=== PATIENT | female | born 2000 | race Caucasian/White ===

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

== ENCOUNTER 2019-06-16 10:47 | Emergency (ER) | payer BC ==
[2019-06-16 11:22] VITALS: BP 111/69
--- NOTE | 2019-06-16 12:19 | UC ---
Complaint Female HPI - HPI Summary HPI Summary: Onset of low abdominal pain with some dysuria but no frequency; this began yesterday and is worsening. Onset of fever last night, initially 100 degrees but was 101.7 this morning. appetite decreased, but no vomiting or diarrhea. Has had a sore throat this week, without cough, ear pain or headache. Sexually active; she is on oral contraceptives for protection, but did not use a condom with a new partner about 4 days ago. No increase in discharge since then. Pain is worsening [facility]. Last ate approximately 9 am - History Of Current Complaint Chief Complaint: UCAbdominalPain Stated Complaint: ABD PAIN,FEVER Time Seen by Provider: 06/16/19 12:03 Hx Obtained From: Patient Hx Last Menstrual Period: 06/02/19 ?: No Onset/Duration: Gradual Onset, Lasting Days - 3 Timing: Constant Severity Initially: Moderate Severity Currently: Severe Pain Intensity: 7 - Allergies/Home Medications Allergies/Adverse Reactions: Allergies Allergy/AdvReac Type Severity Reaction Status Date / Time amoxicillin Allergy Hives Verified 06/16/19 11:23 morphine Allergy Hives Verified 06/16/19 11:23 Home Medications: Home Medications Acetaminophen [Tylenol Extra Strength] 1 tab PO ONCE 06/16/19 [History Confirmed 06/16/19] Ibuprofen TAB* [Advil TAB*] 400 mg PO ONCE 06/16/19 [History Confirmed 06/16/19] PMH/Surg Hx/FS Hx/Imm Hx Previously Healthy: Yes - Surgical History Surgical History: Yes Surgery Procedure, Year, and Place: Ear Tubes, ~1999, [place] - Family History Known Family History: Positive: None Negative: Cardiac Disease, Hypertension, Diabetes - Social History Occupation: Student Lives: With Family Alcohol Use: Occasionally Substance Use Type: None Smoking Status (MU): Never Smoked Tobacco Have You Smoked in the Last Year: No - Immunization History Most Recent Influenza Vaccination: Fall 2015 Vaccination Up to Date: Yes Review of Systems All Other Systems Reviewed And Are Negative: Yes Constitutional: Positive: Fever, Chills, Fatigue Eyes: Positive: Negative ENT: Positive: Sore Throat Respiratory: Negative: Shortness Of Breath, Cough Cardiovascular: Negative: Palpitations, Chest Pain Gastrointestinal: Positive: Abdominal Pain. Negative: Diarrhea Genitourinary: Positive: Dysuria. Negative: Hematuria, Frequency, Urgency Motor: Positive: Negative Neurovascular: Positive: Negative Musculoskeletal: Positive: Negative Neurological: Positive: Headache Psychological: Positive: Negative Is Patient Immunocompromised?: No Physical Exam Triage Information Reviewed: Yes Appearance: Well-Appearing, Well-Nourished, Pain Distress - moderate to severe, crying with pain Vital Signs: Initial Vital Signs Temp 99 F 06/16/19 11:15 Pulse 103 06/16/19 11:15 Resp 16 06/16/19 11:15 BP 111/69 06/16/19 11:15 Pulse Ox 99 06/16/19 11:15 ENT: Positive: Tonsillar swelling, Tonsillar exudate - bilateral Dental Exam: Normal Neck: Positive: Supple, Nontender, No Lymphadenopathy Respiratory: Positive: Lungs clear, Normal breath sounds Cardiovascular: Positive: RRR, No Murmur Abdomen Description: Positive: Soft, Guarding - guarding with palpation of the lower quadrants, with rebound tenderness., Peritoneal Signs. Negative: CVA Tenderness (R), CVA Tenderness (L), Hepatomegaly, Pulsatile Mass, Splenomegaly Bowel Sounds: Positive: Hypoactive Pelvic Exam: Positive: External Exam Normal, Speculum Exam Normal, No Masses. Negative: Tender Adnexa, Tender Uterus Musculoskeletal Exam: Normal Neurological: Positive: Alert, Muscle Tone Normal Psychological Exam: Normal Skin Exam: Normal Diagnostics - Laboratory Lab Results: UA with trace esterace. Swabs obtained for GC Chlamydia. Strep negative Complaint Female Dx - Course Course Of Treatment: Transfer to ER for evaluation due to concern that this is appendicitis. - Differential Dx/Diagnosis Differential Diagnosis/HQI/PQRI: Appendicitis, Cervicitis, Pelvic Inflammatory Disease Provider Diagnosis: Abdominal pain, acute, right lower quadrant - Physician Notifications Discussed Patient Care With: Tomy Red Discharge - Sign-Out/Discharge Documenting (check all that apply): Patient Departure All imaging exams completed and their final reports reviewed: No Studies - Discharge Plan Condition: Stable Disposition: TRANS HIGHER LVL OF CARE FAC Patient Education Materials: Acute Abdominal Pain (ED) Referrals: Ruth Lima NP [Primary Care Provider] - Additional Instructions: Please proceed straight to the emergency room. Do not eat or drink until you have been assessed in the ER. - Billing Disposition and Condition Condition: STABLE Disposition: Trans Higher Lvl of Care Fac
[2019-06-17 13:05] LABS: Chlamydia trachomatis NAA Negative (Negative); Neisseria gonorrhoeae (GC) NAA Negative (Negative)
--- NOTE | 2019-06-18 07:11 | UC ---
- Progress Note Progress Note: urine final - no growth culture neg gc//ch no change ljj 06/18/19 Course/Dx - Diagnoses Provider Diagnoses: Abdominal pain, acute, right lower quadrant Discharge - Sign-Out/Discharge Documenting (check all that apply): Post-Discharge Follow Up All imaging exams completed and their final reports reviewed: No Studies - Discharge Plan Condition: Stable Disposition: TRANS HIGHER LVL OF CARE FAC Patient Education Materials: Acute Abdominal Pain (ED) Referrals: Ruth Lima QA [employer]INE[employer] [Primary Care Provider] - Additional Instructions: Please proceed straight to the emergency room. Do not eat or drink until you have been assessed in the ER. - Billing Disposition and Condition Condition: STABLE Disposition: Trans Higher Lvl of Care Fac
== END 2019-06-16 13:11 | disposition short-term general hospital (02) ==
LOC: UCCORT 10:47
DX: R10.31 Right lower quadrant pain (principal)
CPT/HCPCS: 81003; 84702; 87086; 87491; 87591; 87651; 99212; G0463